=== PATIENT | male | born 1940 | race Native Hawaiian/Other Pacific Islander ===

== ENCOUNTER 2017-03-08 21:08 | Emergency (ER) | payer MEDICAID, OTHER ==
[~2017-03-08] VITALS: Ht 170.2 cm; Wt 63.0 kg
[~2017-03-08 21:08] MED LIST: LISI10TA PO; LORTA10 PO; OXYC-360 PO; SSD1CRE EXT; ZOLP1TAB32 PO
[2017-03-08 21:15] VITALS: BP 108/52; PULSE 87; RESP 16; TEMP 98.4; O2SAT 91
--- NOTE | 2017-03-08 22:15 | RADRPT ---
EXAM DATE/TIME: 03/08/2017 21:48 [facility] COMPARISON: SPINE LUMBAR LTD (AP & LAT), May 06, 2012, 13:41. INDICATIONS : Low back pain, fell MEDICAL HISTORY : None. SURGICAL HISTORY : Cholecystectomy. Kyphoplasty. Abdomen surgery ENCOUNTER: Initial ACUITY: 1 day PAIN SCORE: 8/10 LOCATION: Lumbar spine FINDINGS: Two view examination was performed. There are five non-rib bearing vertebral bodies. The vertebral bodies are in normal alignment without evidence of subluxation or scoliosis. The patient's had a prev ious L3 vertebroplasty. Bilateral iliac artery stents The disc spaces are maintained. The pedicles a re intact. Bony mineralization is normal. No fracture is identified. Cholecystectomy clips CONCLUSION: Unremarkable limited examination of the lumbar spine status post L3 vertebroplasty with some loss of height similar to the April exam. Sha Hernandez MD on March 08, 2017 at 22:12 Board Certified Radiologist. This report was verified electronically.
--- NOTE | 2017-03-08 22:19 | RADRPT ---
EXAM DATE/TIME: 03/08/2017 21:49 [facility] COMPARISON: No previous studies available for comparison. INDICATIONS : Right posterior hip pain, fell MEDICAL HISTORY : None. SURGICAL HISTORY : Cholecystectomy. Kyphoplasty. Abdomen surgery ENCOUNTER: Initial ACUITY: 1 day PAIN SCORE: 10/10 LOCATION: Right Hip FINDINGS: Examination of the right hip was performed with AP Pelvis. The femoral head is normal in shape. The f emoral neck is unremarkable. There is a fracture of the inferior pubic ramus, new since 2012. There a lso appears to be fracture of the superior pubic ramus on the right CONCLUSION: Femoral head and neck are unremarkable. Fractures of the superior and inferior pubic rami. Sha Hernandez MD on March 08, 2017 at 22:15 Board Certified Radiologist. This report was verified electronically.
--- NOTE | 2017-03-08 22:35 | PD ---
HPI Chief Complaint: Fall Time Seen by Provider: 21:25 Travel History International Travel<30 days: No Contact w/Intl Traveler<30days: No Traveled to known affect area: No History of Present Illness HPI 77 male presents to emergency department after fall that occurred this afternoon. Patient states that he was getting out of the car lost balance and fell onto his right hip. Patient states that he lost his balance because he has chronic back and left leg pain and was unable to catch himself. Denies dizziness before or after the event. Denies head trauma, neck pain, LOC. Patient does not take blood thinners. States currently his right hip is moderately painful especially with movement. He was ambulatory earlier today but was brought in by [facility]. Denies fever, chills, loss of bowel or bladder function, saddle anesthesia. He takes hydrocodone daily for his chronic pain. PFSH Past Medical History Autoimmune Disease: No Blood Disorders: No Cardiovascular Problems: Yes (HTN) Diminished Hearing: No Endocrine: No Gastrointestinal Disorders: No Genitourinary: No Hypertension: Yes Musculoskeletal: Yes (Chronic back pain) Neurologic: No Respiratory: No Tetanus Vaccination: > 5 Years Influenza Vaccination: No Past Surgical History Abdominal Surgery: Yes Appendectomy: Yes Cholecystectomy: Yes Other Surgery: Yes (BILAT FEM/POP BYPASS) Social History Alcohol Use: Yes (beer on weekends) Tobacco Use: Yes (ONE PPD X 30 YEARS) Substance Use: No Allergies-Medications (Allergen,Severity, Reaction): Coded Allergies: Fish Containing Products (Unverified Allergy, Severe, Anaphylaxis, 10/13/16 ) aspirin (Unverified Allergy, Severe, HIVES, 10/13/16) codeine (Unverified Allergy, Severe, HIVES, 10/13/16) penicillin G (Unverified Allergy, Severe, HIVES, 10/13/16) Reported Meds & Prescriptions Reported Meds & Active Scripts Active Roller Walker (Misc. Devices) 1 Mis Mis Ea .ROUTE NOW Silvadene 50 Gm (Silver Sulfadiazine) 50 Applic/50 Gm Cr 50 Applic EXT DAILY Percocet (Oxycodone/Acetaminophen) 5 Mg/325 Mg Tab 1 Tab PO Q6HPRN FOR PAIN Reported Hydrocodone/Acetaminophen 10 mg/325 mg 10 Mg/325 Mg Tab 1 Tab PO BID Ambien 5 Mg Tab (Zolpidem Tartrate) 5 Mg Tab 5 Mg PO HSPRN Lisinopril/Hctz 10 mg/12.5 mg 10 mg/12.5 mg Tab 1 Tab PO DAILY Review of Systems Except as stated in HPI: all other systems reviewed are Neg Physical Exam Narrative GENERAL: Well-developed well-nourished in no apparent distress, lying in bed SKIN: Focused skin assessment warm/dry. HEAD: Atraumatic. Normocephalic. EYES: Pupils equal and round. No scleral icterus. No injection or drainage. ENT: No nasal bleeding or discharge. Mucous membranes pink and moist. NECK: Trachea midline. No JVD. CARDIOVASCULAR: Regular rate and rhythm. No murmur appreciated. RESPIRATORY: No accessory muscle use. Clear to auscultation. Breath sounds equal bilaterally. GASTROINTESTINAL: Abdomen soft, non-tender, nondistended. MUSCULOSKELETAL: No obvious deformities. No clubbing. No cyanosis. No edema. Mild TTP left glut, pelvis stable, no crepitus. mild TTP to lower lumbar region without step off. Pt has full range of motion of leg. Neurovascularly intact. NEUROLOGICAL: Awake and alert. No obvious cranial nerve deficits. Motor grossly within normal limits. Normal speech. PSYCHIATRIC: Appropriate mood and affect; insight and judgment normal. Data Data Last Documented VS Vital Signs Date Time Temp Pulse Resp B/P (MAP) Pulse Ox O2 Delivery O2 Flow Rate FiO2 03/08/17 21:23 16 96 Nasal Cannula 2.00 03/08/17 21:15 98.4 87 108/52 (70) Orders Orders Spine, Lumbar - Ltd (Ap & Lat) (03/08/17 ) Hip, Uni(Ap&Lat) W Ap Pelvis (03/08/17 ) Acetamin-Hydrocod 325-7.5 Mg ([place] 7.5 (03/08/17 22:45) Ed Discharge Order (03/08/17 23:16) [facility] Medical Decision Making Medical Screen Exam Complete: Yes Emergency Medical Condition: Yes Differential Diagnosis right hip fracture, contusion, sprain Narrative Course 77 male presents to emergency department after fall that occurred this afternoon. Patient states that he was getting out of the car lost balance and fell onto his right hip. Patient states that he lost his balance because he has chronic back and left leg pain and was unable to catch himself. Denies dizziness before or after the event. Denies head trauma, neck pain, LOC. Patient does not take blood thinners. States currently his right hip is moderately painful especially with movement. He was ambulatory earlier today but was brought in by [facility]. Denies fever, chills, loss of bowel or bladder function, saddle anesthesia. He takes hydrocodone daily for his chronic pain. Vital signs stable Last Impressions Lumbar Spine X-Ray 03/08/17 0000 Signed Impressions: Service Date/Time: Wednesday, March 08, 2017 21:48 - CONCLUSION: Unremarkable limited examination of the lumbar spine status post L3 vertebroplasty with some loss of height similar to the April exam. Sha Hernandez MD Hip and Pelvis X-Ray 03/08/17 0000 Signed Impressions: Service Date/Time: Wednesday, March 08, 2017 21:49 - CONCLUSION: Femoral head and neck are unremarkable. Fractures of the superior and inferior pubic rami. Sha Hernandez MD There were no red flags upon exam. I discussed this patient with the nurse who said he was moving about easily in bed until I showed up in the room. The nurse states that the patient then appeared as if he was in more pain. While I do believe this patient is in pain, I do not believe it warrants an admission to the hospital today. Pt advised to follow-up with orthopedic doctor. Roller walker prescribed. Advised to use weightbearing as tolerated. Follow-up with a primary care physician within 2-3 days. Return to emergency part worsening or persistent symptoms. Diagnosis Primary Impression: Pelvic fracture Qualified Codes: S32.9XXA - Fracture of unspecified parts of lumbosacral spine and pelvis, initial encounter for closed fracture Referrals: Shiraz Guillen Jr., MD Orthopedist Additional Instructions: Use ice or heat for symptom relief. Use the walker for ambulation. Elevate the joint above the heart to reduce swelling. If symptoms persist or worsen, return to the emergency department. Follow up with your primary care physician within 2 days. Follow-up with orthopedist within 1 week. Scripts Misc. Devices (Roller Walker) 1 Mis Mis EA .ROUTE NOW, #1 Prov: Eula Koroma 03/08/17 Disposition: 01 DISCHARGE HOME Condition: Stable Eula Koroma Mar 08, 2017 22:35
[2017-03-08] MEDS ORDERED: ROLLER WALKER1 MI1 (22:45)
[2017-03-08] MEDS ORDERED: ACETAMINOPHEN/HYDROcodone 325 MG/7.5 MG TAB PO ONE (22:45)
== END 2017-03-09 00:13 | disposition home or self-care (01) ==
LOC: NEPC 21:08
DX: S32.591A Other specified fracture of right pubis, initial encounter for closed fracture (principal); M54.9 Dorsalgia, unspecified; M79.605 Pain in left leg; G89.29 Other chronic pain; I10 Essential (primary) hypertension; F17.200 Nicotine dependence, unspecified, uncomplicated; W19.XXXA Unspecified fall, initial encounter; Z79.899 Other long term (current) drug therapy; Z88.0 Allergy status to penicillin
CPT/HCPCS: 72100; 73502; 99284